=== PATIENT | male | born 1955 | race Caucasian/White ===

== ENCOUNTER 2017-08-25 02:43 | Inpatient (IN) | payer OTHER, MEDICARE ==
[~2017-08-25] VITALS: Ht 170.2 cm; Wt 90.7 kg
[~2017-08-25 02:43] MED LIST: PHENYTOIN SODI100 MG PO; PRIMIDONE250 M1 PO
--- NOTE | 2017-08-25 10:17 | ULTRASOUND REPORT ---
EXAMINATION: US TRIPLEX LOWER EXTREMITY, LEFT CLINICAL INFORMATION: History of left femur fracture, pain and swelling. Evaluate for deep vein thrombosis. Patient scheduled for surgery on 08/25/2017. COMPARISON: 08/30/2016 TECHNIQUE: Color-flow triplex imaging with spectral analysis and compression Doppler were performed on the lower extremity. FINDINGS: The left common femoral vein is compressible and exhibits a normal phasic waveform; this suggests that the iliac veins are widely patent above. Within the proximal thigh, the visualized profunda femoris vein is patent. The examined greater saphenous vein and saphenofemoral junction are normal. Superficial femoral vein is patent in the proximal, mid and distal thigh. Popliteal vein appears normal to the level of the trifurcation. On magaña scale and color Doppler images, the visualized calf veins are grossly patent. No evidence of Guerrero's cyst. IMPRESSION: No evidence of deep vein thrombosis in the left lower extremity.
--- NOTE | 2017-08-25 12:25 | Admission Core Measures ---
Acute Coronary Syndrome (CM) ACS Core Measures Acute Coronary Syndrome Diagnosis No Congestive Heart Failure (NEW) CHF Core Measures Congestive Heart Failure Diagnosis No Cerebrovascular Accident CVA Core Measures CVA/TIA Diagnosis No Venous Thromboembolism VTE Core Daryl (View Protocol) VTE Risk Factors Surgery No Mechanical VTE Prophylaxis d/t N/A MechProphylax Ordered No VTE Pharm Prophylaxis d/t NA PharmProphylax ordered Problem List As ranked by this Provider includes Assessment & Plan 1. Femur fracture, left HOME MEDS Home Med List Phenytoin Sodium Extended 100 MG CAPSULE 2 CAP PO BID SEIZURES (Reported) Primidone 250 MG TABLET 1 TAB PO BID SEIZURES (Reported)
--- NOTE | 2017-08-25 12:27 | Surgical Discharge Summary ---
Visit Information Visit Dates Admission Date: 08/25/17 Discharge Date: 08/28/17 History of Present Illness Chief Complaint: Refer to H&P Surgical History Pertinent Surgical History: L femur IM rodding 08/25/17 Psychosocial History What is Your Primary Language? Welsh Review of Systems: Refer to H&P Hospital Course Course Attending Physician: Amado MATTSON,Baldev Primary Care Physician: Cristian MATTSON,Óscar Watts Hospital Course: Patient presented to [facility] for an elective left femur IM rodding by Dr Prescott on 08/25/17. Patient tolerated the procedure and was brought to the PACU in stable condition. Post op he was seen and evaluated by PT. He had very little pain. He was started on Coumadin for DVT prophylaxis and his INR was check daily to titrate the dose. His dressing was changed daily and there were no signs of infection. His vitals remained stable, he was voiding without difficulty, tolerating a diet and was cleared for discharge. Allergies: Coded Allergies: No Known Allergies (08/22/17) Significant Procedures: Left femur IM rodding on 08/25/17 Disposition Summary Disposition Principal Diagnosis: Left femur fracture Additional Diagnosis: KALA s/p left retrograde femur IM rodding Discharge Disposition: SNF Discharge Instructions General Discharge Information Code Status: Full Code Patient's Diet: Regular Patient's Activity: Nonweight bearing of LLE No L knee flexion, knee immobilizer to be worn Follow-Up Instructions/Appts: 1-[address] Prescott Medications at Discharge Discharge Medications: Continue taking these medications: Phenytoin Sodium Extended (Phenytoin Sodium Extended) 100 MG CAPSULE 2 Capsule ORAL TWICE DAILY Qty = 360 Primidone (Primidone) 250 MG TABLET 1 Tablet ORAL TWICE DAILY Qty = 180 Start taking the following new medications: Polyethylene Glycol 3350 (Miralax) 17 GRAM POWD.PACK 1 Packet ORAL DAILY Qty = 7 No Refills Instructions: dissolve in water. STOP TAKING IF YOU DEVELOP LOOSE STOOL/DIARRHEA Docusate Sodium (Colace) 100 MG CAPSULE 1 Capsule ORAL THREE TIMES DAILY Qty = 21 No Refills Instructions: STOP TAKING IF YOU DEVELOP LOOSE STOOL/DIARRHEA Oxycodone HCl/Acetaminophen (Percocet 5-325 MG Tablet) 5 MG-325 MG TABLET 1 Tablet ORAL EVERY 4-6 HOURS as needed for postop pain Qty = 18 No Refills Warfarin Sodium (Coumadin) 2.5 MG TABLET 1 Tablet ORAL DAILY Qty = 30 No Refills Instructions: INR should be checked every other day to titrate dose. INR goal is between 2-3. Copies To: Cristian MATTSON,Óscar Watts
--- NOTE | 2017-08-25 12:29 | Patient Discharge Instructions ---
Discharge Instructions General Discharge Information You were seen/treated for: Left femur fracture You had these procedures: Left femur IM rodding on 08/25/17 Watch for these problems: Increased pain, fever > 101.3, redness or drainage from incision or inability to bear weight Other wound care: Keep incisions clean and dry May shower, no bathing or soaking Special Instructions: daily dry dressing change. No knee flextion Keep knee immobilizer in place Pt is being prescribed COumadin for post-op DVT prophylaxis. INR should be check everyother day to titrate daily dose. Goal INR is between 2-3. Please call Dr Hernandez office for further instructions if needed. Diet Continue normal diet: Yes Activity Activity Self Limited: Yes Activity Limited to: No weight bearing (of LLE / No L knee flexion) Acute Coronary Syndrome Inclusion Criteria At DC or during hospital stay patient has or had the following: ACS DIAGNOSIS No Discharge Core Measures Meds if any: Prescribed or Continued at Discharge Meds if any: NOT Prescribed or Continued at Discharge Congestive Heart Failure Inclusion Criteria At DC or during hospital stay patient has or had the following: CHF DIAGNOSIS No Discharge Core Measures Meds if any: Prescribed or Continued at Discharge Meds if any: NOT Prescribed or Continued at Discharge Cerebrovascular accident Inclusion Criteria At DC or during hospital stay patient has or had the following: CVA/TIA Diagnosis No Discharge Core Measures Meds if any: Prescribed or Continued at Discharge Meds if any: NOT Prescribed or Continued at Discharge Venous thromboembolism Inclusion Criteria VTE Diagnosis No VTE Type NONE VTE Confirmed by (Test) NONE Discharge Core Measures - Per Current guidelines, there needs to be overlap - treatment for the first 5 days of Warfarin therapy. - If discharged on Warfarin prior to 5 days of - overlap therapy, the patient will need to be - assessed for post discharge needs including - *Post discharge parental anticoagulation - *Warfarin and/or parental anticoagulation education - *Follow up date to check INR post discharge At least 5 days overlap therapy as Inpatient No Meds if any: Prescribed or Continued at Discharge Note: Overlap Therapy is Warfarin and Anticoagulant Meds if any: NOT Prescribed or Continued at Discharge
--- NOTE | 2017-08-25 15:59 | Operative Report ---
Operative/Inv Procedure Report Surgery Date: 08/25/17 Name of Procedure: Retrograde rodding left supracondylar/intercondylar femur fracture Pre-Operative Diagnosis: Displaced left supracondylar/intercondylar femur fracture Post-Operative Diagnosis: Same Estimated Blood Loss: 150cc Surgeon/Residential Youth Counselor: Amado MATTSON,Robby De Paz PA Anesthesia: general endotracheal tube Implants: Left supracondylar femoral rosa-size 13 x 20, 4 distal interlock and one proximal Drains: None Specimens: None Tourniquet: None used Complications: None Condition: Stable Operative Indication: This patient is a 62-year-old man who fell at home approximately 10 days ago injuring his left knee. He states he had a hyperflexion of the left knee. 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 He was seen in urgent care in our office 2 days after his injury and was found to have a displaced supracondylar/intercondylar femur fracture. Patient preferred just stay at home while getting cleared for surgery which was recommended. Recommendation was for retrograde rodding of the left femur fracture after reducing the fracture. Patient had significant swelling and fracture blisters that developed over the anteromedial aspect of the knee at the time of the initial evaluation and therefore surgery would have to be delayed. Patient was medically cleared and his swelling and fracture blisters have improved and therefore was ready to proceed with surgical management. Risks, benefits and expectations of the surgical procedure were discussed which included but were not limited to persistent knee pain, need for subsequent surgery, infection, DVT, injury of blood vessels or nerves, malunion, nonunion, anesthesia risks. Patient wishes to proceed with surgical management Operative/Procedure Note Note: Patient was brought to the operating room and transferred to the operating table. Once under appropriate anesthesia the left lower extremity was prepped and draped in standard fashion. Preoperative IV antibiotics were given prophylactically. The knee was slightly flexed and an incision was made over the anterior aspect of the knee at the level of the infrapatellar tendon. Patient's anatomy was distorted due to the chronic patellar dislocation. The incision was taken down sharply and entered the knee joint from the most medial aspect of the patellar tendon and entered the knee joint through the fat pad. Hemostasis was obtained. No tourniquet was used. The intracondylar notch was noted. There were severe degenerative changes of the distal femur and the chronically dislocated patella was palpated and there was significantly eburnated bone underneath the patella with loss of articular cartilage. There was a large hemarthrosis which was evacuated. The guidewire were using the Warren supracondylar nail was used to enter the distal femur. The left knee was manipulated so that to reduce patient's deformity which included a valgus deformity as well as a translated distal fragment and flexed distal fragment. After obtaining satisfactory alignment the guidepin was passed across the fracture into the proximal femur. I then used a starter reamer over the guide pin. The guide pin was then removed and then a beaded guidewire was passed into the proximal femur. Serial reamers up to a size 14 for anticipated insertion of a size 13 supracondylar nail was done while protecting the soft tissues with the soft tissue protector. The size 13 x 20 Eileen supracondylar nail was passed up across the fracture. I was satisfied position of the guidewire in both AP and lateral planes as well as the rosa. I then removed the guide wire and used the system guide for the cylinder locks. Due to the amount of comminution I elected to try to use all 4 distal interlocks as long as it did not go through the previous fracture blister site and also not to injure the chronically dislocated patella. In serial fashion I placed these interlocking screws in succession. I was satisfied with position of the distal interlocks as well as confirming that they were through the rosa. The more proximal interlock guide was then applied to the construct and I placed one proximal interlock screw in the more distal hole. But despite using the guide system, the drill did not pass through the interlock hole. Instead of injuring the femur in this area I elected to proceed with the more distal of the proximal interlocks. This was done to the guide system which did work. I was satisfied with the position and the length of the screws. Final fluoroscopic images were obtained of the construct. Also has had a reduction of the fracture and the stability of the fracture. Patient did have preoperative range of motion issues and the knee was taken to range of motion from full extension to about 95 of flexion with no crepitus and there was no evidence of instability of the fracture site. This was done after the guide rosa was removed from the rosa. There was no evidence of any prominence of the hardware. After final films were obtained copious irrigation the wound followed.. I then closed the joint with #1 Vicryl suture and interrupted fashion. Subcutaneous tissues closed with 2-0 Vicryl and skin was closed with vern. The interlock screw stab holes were closed with 2-0 Vicryl followed by vern. Appropriate dressings were applied and patient was awakened and taken to recovery room in good condition. No intraoperative complications. Blood loss approximately 150 mL Discharge Disposition: PACU
--- NOTE | 2017-08-25 16:11 | RADIOLOGY REPORT ---
EXAMINATION: XR FEMUR, LEFT CLINICAL INFORMATION: Open reduction and internal fixation left femur. COMPARISON: CT images of extremity, 08/18/2017. TECHNIQUE: Intraoperative fluoroscopic imaging of the left femur. Number of saved images: 35 Dose: 3.55 mGy (0.115 mGym2) Fluoroscopy time: 1 minute FINDINGS: Fluoroscopic imaging of the femur was utilized at the time of open reduction and internal fixation of the displaced supracondylar fracture. A retrograde intramedullary nail was inserted along with proximal and distal interlocking screws. Please refer to the operative report. Alignment between fracture fragments is markedly improved compared to the preoperative imaging evaluation. IMPRESSION: Intraoperative fluoroscopic imaging of the femur was performed at time of open reduction and internal fixation of the distal femoral supracondylar fracture.
[2017-08-25 17:26] VITALS: BP 164/84
[2017-08-25 21:00] VITALS: BP 120/60
--- NOTE | 2017-08-25 22:00 | PN- Orthopedic ---
Subjective Subjective: Post op check Awake, no complaints post op Denies any pain Tolerating diet, no nausea Has not ambulated Objective Vital Signs and I&Os Vital Signs Date Time Temp Pulse Resp B/P B/P Pulse O2 O2 Flow FiO2 Mean Ox Delivery Rate 08/25 2099 98.5 112 18 120/60 95 Room Air Physical Exam: vss, afebrile General; alert and oriented times three Chest: clear anteriorly bilaterally, RRR Abd: soft, good bs Ext; edema BLE L>R, normosensate Wds: dressing dry to LLE, knee immobilizer in place Assessment/Plan Assessment/Plan 62yo male s/p L femur IM rodding Pain management DVT ppx -coumadin 5 today - INR fu in am PT - nonweight bear to LLE, no L knee flexion Keep immobilizer in place Core Measures Venous Thromboembolism VTE Risk Factors Surgery No Mechanical VTE Prophylaxis d/t N/A MechProphylax Ordered No VTE Pharm Prophylaxis d/t NA PharmProphylax ordered
[2017-08-26 00:53] VITALS: BP 102/66
[2017-08-26 03:54] VITALS: BP 116/60
[2017-08-26 07:00] VITALS: BP 119/58
[2017-08-26 08:32] LABS: ABSOLUTE BASOPHIL COUNT 0 /CUMM (0.0-0.2); ABSOLUTE EOSINOPHIL COUNT 0.1 /CUMM (0.0-0.7); ABSOLUTE LYMPH COUNT 1.2 /CUMM (1.2-3.4); ABSOLUTE MONOCYTE COUNT 0.8 /CUMM (0.10-0.60); BASOPHIL % 0.1 % (0.0-2.0); EOSINOPHIL % 1.1 % (0-5); GRANULOCYTE % 74.1 % (42.2-75.2); HEMATOCRIT 26.1 % (42-52); MEAN CORPUSCULAR HGB 31.5 PG (27.0-31.0); MEAN CORPUSCULAR HGB CONC 33.6 G/DL (33.0-37.0); MEAN CORPUSCULAR VOLUME 93.8 FL (80.0-94.0); MEAN PLATELET VOLUME 8.1 FL (7.4-10.4); PLATELET COUNT 362 /CUMM (130-400); RBC DISTRIBUTION WIDTH 15.2 % (11.5-14.5); RED BLOOD CELL CT 2.78 /CUMM (4.70-6.10); WHITE BLOOD CELL COUNT 8.1 /CUMM (4.8-10.8)
[2017-08-26 08:45] LABS: PT 14.2 SEC (9.4-12.5)
--- NOTE | 2017-08-26 09:13 | PN- Orthopedic ---
See Addendum Subjective Subjective: Patient sitting in chair, resting comfortably. Patient states he has minimal pain well-controlled with medication. Is voiding spontaneously. Denies bowel movement. Has not been out of bed yet, knee immobilizer in place. Patient states he has some discomfort over his left Achilles where rosa from the knee immobilizer is digging into his soft tissue. Denies nausea, tolerating diet. Denies chest pain, shortness of breath, or headache. Objective Vital Signs and I&Os Vital Signs Date Time Temp Pulse Resp B/P B/P Pulse O2 O2 Flow FiO2 Mean Ox Delivery Rate 08/26 0354 99.3 111 20 116/60 95 Room Air 08/26 0053 98.7 112 20 102/66 96 Room Air 08/25 2100 98.5 112 18 120/60 95 Room Air 08/25 1726 97.4 97 18 164/84 97 Room Air Intake & Output 08/26 1600 08/26 0800 08/26 0000 08/25 1600 08/25 0800 08/25 0000 Intake Total 720 855 Output Total 675 1450 Balance 45 -595 Intake, IV 600 375 Intake, Oral 120 480 Output, Urine 675 1450 Patient 200 lb Weight Weight Bed scale Measurement Method Physical Exam: Generalno acute distress Respirationsclear Cardiacregular rate and rhythm Abdomensoft, nontender Extremitiesbilateral lower extremity pedal edema worse on left than right. Left leg wrapped in Rashawn bandage dressing clean and dry, knee immobilizer in place. Added additional padding over left Achilles tendon so knee immobilizer rosa is not digging into the skin. No calf tenderness skin is warm and dry Current Medications: Current Medications Sig/Sally Start time Last Medication Dose Route Stop Time Status Admin Cefazolin Sodium 2 GM Q8H 08/25 2200 DC 08/26 N/A 1 UNIT IV 08/26 0629 0520 Cefazolin Sodium 2,000 MG ONCE 08/25 0000 DC IV 08/25 2359 Dextrose/Lactated 1,000 ML Q13H 08/25 1730 DC 08/26 Ringer's IV 0518 Docusate Sodium 100 MG BID 08/26 0900 AC PO Docusate Sodium 100 MG DAILY NEEDED PRN 08/25 1730 DC PO Fentanyl Citrate 250 MCG .STK-MED ONE 08/25 1211 DC IM 08/25 1212 Hydromorphone HCl 2 MG .STK-MED ONE 08/25 1210 DC IM 08/25 1211 Midazolam HCl 2 MG .STK-MED ONE 08/25 121 DC IM 08/25 1212 Morphine Sulfate 2 MG Q3P PRN 08/25 173 AC IV Morphine Sulfate 4 MG Q3P PRN 08/25 173 AC IV Ondansetron HCl 4 MG Q6P PRN 08/25 1730 AC IV Oxycodone/ 1 TAB Q4P PRN 08/25 173 AC Acetaminophen PO Oxycodone/ 2 TAB Q4P PRN 08/25 173 AC Acetaminophen PO Phenytoin 200 MG BID 08/25 2099 AC 08/26 PO 0806 Polyethylene Glycol 17 GM DAILY NEEDED PRN 08/25 173 AC PO Primidone 250 MG BID 08/25 2099 AC 08/26 PO 08 Senna/Docusate Sodium 2 TAB AT BEDTIME NEED.. 08/25 173 AC PO Warfarin Sodium 5 MG COUMADIN 1700 ONE 08/25 1700 DC 08/25 PO 08/25 1701 1803 Results Last 48 Hours of Labs: Laboratory Tests 08/26 0650 Chemistry Sodium (137 - 145 mmol/L) 139 Potassium (3.5 - 5.1 mmol/L) 3.9 Chloride (98 - 107 mmol/L) 103 Carbon Dioxide (22 - 30 mmol/L) 29 Anion Gap (5 - 16) 8 BUN (9 - 20 mg/dL) 9 Creatinine (0.7 - 1.2 mg/dL) 0.5 L Estimated GFR (>60 ml/min) > 60 BUN/Creatinine Ratio (7 - 25 %) 18.0 Coagulation PT (9.4 - 12.5 SEC) 14.2 H INR (0.90 - 1.17) 1.30 H Hematology CBC w Diff NO MAN DIFF REQ WBC (4.8 - 10.8 /CUMM) 8.1 RBC (4.70 - 6.10 /CUMM) 2.78 L Hgb (14.0 - 18.0 G/DL) 8.8 L Hct (42 - 52 %) 26.1 L MCV (80.0 - 94.0 FL) 93.8 MCH (27.0 - 31.0 PG) 31.5 H MCHC (33.0 - 37.0 G/DL) 33.6 RDW (11.5 - 14.5 %) 15.2 H Plt Count (130 - 400 /CUMM) 362 MPV (7.4 - 10.4 FL) 8.1 Gran % (42.2 - 75.2 %) 74.1 Lymphocytes % (20.5 - 51.1 %) 14.6 L Monocytes % (1.7 - 9.3 %) 10.1 H Eosinophils % (0 - 5 %) 1.1 Basophils % (0.0 - 2.0 %) 0.1 Absolute Granulocytes (1.4 - 6.5 /CUMM) 6.0 Absolute Lymphocytes (1.2 - 3.4 /CUMM) 1.2 Absolute Monocytes (0.10 - 0.60 /CUMM) 0.8 H Absolute Eosinophils (0.0 - 0.7 /CUMM) 0.1 Absolute Basophils (0.0 - 0.2 /CUMM) 0 Assessment/Plan Assessment/Plan 62yo male with mild MR s/p L femur retrograde IM rodding POD1. stable Pain management DVT ppx -coumadin 5 today - INR is 1.3. goal is 2-3 We will continue to trend H&H to watch for possible acute blood loss anemia PT - nonweight bear to LLE, no L knee flexion IS Add bowel regimen Keep immobilizer in place. Make sure extra padding over Achilles tendon. Regular diet, will DC IV fluids Regular home meds Dressing change postop day 2 DC planningfamily would prefer Leodan Natarajan Core Measures Venous Thromboembolism VTE Risk Factors Surgery No Mechanical VTE Prophylaxis d/t N/A MechProphylax Ordered No VTE Pharm Prophylaxis d/t NA PharmProphylax ordered
[2017-08-26 11:00] VITALS: BP 104/64
[2017-08-26 14:25] VITALS: BP 117/62
[2017-08-26 22:46] VITALS: BP 120/72
[2017-08-27 07:11] VITALS: BP 126/68
--- NOTE | 2017-08-27 08:20 | PN- Orthopedic ---
See Addendum Subjective Subjective: Patient comfortable, mild pain with motion, otherwise pain is well controlled. Knee immobilizer fitting better. No acute events overnight. Does not feel lightheaded or dizzy. Objective Vital Signs and I&Os Vital Signs Date Time Temp Pulse Resp B/P B/P Pulse O2 O2 Flow FiO2 Mean Ox Delivery Rate 08/27 710 99.0 104 20 126/68 95 08/26 2246 98.9 100 20 120/72 95 08/26 1425 99.1 115 20 117/62 97 Room Air 08/26 1150 Room Air 08/26 1100 98.2 104 16 104/64 96 Room Air 08/26 1028 100 Intake & Output 08/27 0808/27 0000 08/26 1600 08/26 0808/26 0000 Intake Total 240 575 720 855 Output Total 650 400 026 335 1254 Balance -650 -160 75 45 -595 Intake, IV 75 600 375 Intake, Oral 240 500 120 480 Number 0 Bowel Movements Output, Urine 650 400 902 173 3385 Patient 200 lb Weight Weight Bed scale Measurement Method Physical Exam: Well-developed well-nourished no apparent distress. HEENT: Atraumatic, extraocular motion intact Neck: Supple, no lymphadenopathy Respiratory: No respiratory distress Extremities: No edema LEFT lower extremity dressing in place, Mild bloody drainage from anterior knee incision. Mild to moderate swelling. No signs of infection. Mild joint effusion dressing changed, dry sterile dressings applied Compression wrap in place. ALPS in place Neurovascularly intact distally Bilateral calves are supple, nontender. Neuro: Alert and oriented x3 Psych: Mood affect normal, normal memory normal judgment. Skin: Warm and dry, no rash on exposed skin Results Last 48 Hours of Labs: Laboratory Tests 08/27 08/26 0638 0650 Chemistry Sodium (137 - 145 mmol/L) 139 Potassium (3.5 - 5.1 mmol/L) 3.9 Chloride (98 - 107 mmol/L) 103 Carbon Dioxide (22 - 30 mmol/L) 29 Anion Gap (5 - 16) 8 BUN (9 - 20 mg/dL) 9 Creatinine (0.7 - 1.2 mg/dL) 0.5 L Estimated GFR (>60 ml/min) > 60 BUN/Creatinine Ratio (7 - 25 %) 18.0 Coagulation PT (9.4 - 12.5 SEC) Pending 14.2 H INR (0.90 - 1.17) Pending 1.30 H Hematology CBC w Diff Pending NO MAN DIFF REQ WBC (4.8 - 10.8 /CUMM) Pending 8.1 RBC (4.70 - 6.10 /CUMM) Pending 2.78 L Hgb (14.0 - 18.0 G/DL) Pending 8.8 L Hct (42 - 52 %) Pending 26.1 L MCV (80.0 - 94.0 FL) Pending 93.8 MCH (27.0 - 31.0 PG) Pending 31.5 H MCHC (33.0 - 37.0 G/DL) Pending 33.6 RDW (11.5 - 14.5 %) Pending 15.2 H Plt Count (130 - 400 /CUMM) Pending 362 MPV (7.4 - 10.4 FL) Pending 8.1 Gran % (42.2 - 75.2 %) 74.1 Lymphocytes % (20.5 - 51.1 %) 14.6 L Monocytes % (1.7 - 9.3 %) 10.1 H Eosinophils % (0 - 5 %) 1.1 Basophils % (0.0 - 2.0 %) 0.1 Absolute Granulocytes (1.4 - 6.5 /CUMM) 6.0 Absolute Lymphocytes (1.2 - 3.4 /CUMM) 1.2 Absolute Monocytes (0.10 - 0.60 /CUMM) 0.8 H Absolute Eosinophils (0.0 - 0.7 /CUMM) 0.1 Absolute Basophils (0.0 - 0.2 /CUMM) 0 Assessment/Plan Assessment/Plan 62yo male with mild MR s/p L femur retrograde IM rodding POD2. Pain management DVT ppx -coumadin, INR pending today We will continue to trend H&H to watch for possible acute blood loss anemia, mild tachycardia overnight PT - nonweight bear to LLE, no L knee flexion IS Keep immobilizer in place. Make sure extra padding over Achilles tendon. Regular diet, Regular home meds Dressing change daily, done today, dsd applied DC planningfamily would prefer Leodan Natarajan, later today vs tomorrow Core Measures Venous Thromboembolism VTE Risk Factors Surgery No Mechanical VTE Prophylaxis d/t N/A MechProphylax Ordered No VTE Pharm Prophylaxis d/t NA PharmProphylax ordered
[2017-08-27 08:24] LABS: ABSOLUTE BASOPHIL COUNT 0 /CUMM (0.0-0.2); ABSOLUTE EOSINOPHIL COUNT 0.2 /CUMM (0.0-0.7); ABSOLUTE GRANULOCYTE CT 6.1 /CUMM (1.4-6.5); ABSOLUTE LYMPH COUNT 1.4 /CUMM (1.2-3.4); BASOPHIL % 0.1 % (0.0-2.0); EOSINOPHIL % 2.8 % (0-5); GRANULOCYTE % 69.8 % (42.2-75.2); HEMATOCRIT 26.4 % (42-52); MEAN CORPUSCULAR HGB CONC 33.1 G/DL (33.0-37.0); MEAN CORPUSCULAR VOLUME 93.7 FL (80.0-94.0); MEAN PLATELET VOLUME 8.2 FL (7.4-10.4); PLATELET COUNT 341 /CUMM (130-400); RBC DISTRIBUTION WIDTH 15.4 % (11.5-14.5); RED BLOOD CELL CT 2.82 /CUMM (4.70-6.10); WHITE BLOOD CELL COUNT 8.7 /CUMM (4.8-10.8)
[2017-08-27 09:34] LABS: PT 20.5 SEC (9.4-12.5)
[2017-08-27 14:48] VITALS: BP 120/60
[2017-08-27 21:17] VITALS: BP 118/62
[2017-08-28 06:15] VITALS: BP 112/64
--- NOTE | 2017-08-28 09:21 | PN- Orthopedic ---
Subjective Subjective: pt sitting in chair, no complaints of pain. worked with PT this morning. Dneis nausea, tolerating diet voiding, last BM 2 days ago. deneis paresthesias Denies CP/SOB/SOLARES Objective Vital Signs and I&Os Vital Signs Date Time Temp Pulse Resp B/P B/P Pulse O2 O2 Flow FiO2 Mean Ox Delivery Rate 08/28 0515 98.1 91 20 112/64 94 Room Air 08/27 2117 98.8 111 20 118/62 94 08/27 1448 99.5 104 20 120/60 96 Room Air Intake & Output 08/28 1600 08/28 0800 08/28 0000 08/27 1600 08/27 0808/27 0000 Intake Total 375 376 9703 240 Output Total 400 200 725 650 400 Balance -40 160 285 -650 -160 Intake, IV 10 Intake, Oral 910 387 1854 240 Output, Urine 400 200 725 650 400 Physical Exam: gen- NAD resp-clear cardiac-RRR abd- soft, NT ext- left leg in knee immobilizer, dressing with minimal drainage. dressing changed. wounds with no signs of infection. pedal edema bilaterally. no calf tenderness. distal sensation intact, distal motor function is decreased on the left (this is is baseline) Current Medications: Current Medications Sig/Sally Start time Last Medication Dose Route Stop Time Status Admin Docusate Sodium 100 MG BID 08/26 899 AC 08/28 PO 0846 Ferrous Sulfate 325 MG BID 08/27 2099 AC 08/28 PO 0846 Morphine Sulfate 2 MG Q3P PRN 08/25 1730 AC IV Morphine Sulfate 4 MG Q3P PRN 08/25 1730 AC IV Nystatin 1 RE BID 08/27 09 AC 08/28 TOP 0846 Ondansetron HCl 4 MG Q6P PRN 08/25 1730 AC IV Oxycodone/ 1 TAB Q4P PRN 08/25 1730 AC Acetaminophen PO Oxycodone/ 2 TAB Q4P PRN 08/25 1730 AC Acetaminophen PO Patient Medication 1 ED ONE ONE 08/27 1230 DC Teaching ED 08/27 1231 Phenytoin 200 MG BID 08/25 2099 AC 08/28 PO 0846 Polyethylene Glycol 17 GM DAILY NEEDED PRN 08/25 1730 AC PO Primidone 250 MG BID 08/25 2099 AC 08/28 PO 0846 Senna/Docusate Sodium 2 TAB AT BEDTIME NEED.. 08/25 1730 AC PO Warfarin Sodium 2.5 MG COUMADIN 1700 ONE 08/27 1700 DC 08/27 PO 08/27 1701 1707 Results Last 48 Hours of Labs: Laboratory Tests 08/27 0638 Coagulation PT (9.4 - 12.5 SEC) 20.5 H INR (0.90 - 1.17) 1.87 H Hematology CBC w Diff NO MAN DIFF REQ WBC (4.8 - 10.8 /CUMM) 8.7 RBC (4.70 - 6.10 /CUMM) 2.82 L Hgb (14.0 - 18.0 G/DL) 8.7 L Hct (42 - 52 %) 26.4 L MCV (80.0 - 94.0 FL) 93.7 MCH (27.0 - 31.0 PG) 31.0 MCHC (33.0 - 37.0 G/DL) 33.1 RDW (11.5 - 14.5 %) 15.4 H Plt Count (130 - 400 /CUMM) 341 MPV (7.4 - 10.4 FL) 8.2 Gran % (42.2 - 75.2 %) 69.8 Lymphocytes % (20.5 - 51.1 %) 16.3 L Monocytes % (1.7 - 9.3 %) 11.0 H Eosinophils % (0 - 5 %) 2.8 Basophils % (0.0 - 2.0 %) 0.1 Absolute Granulocytes (1.4 - 6.5 /CUMM) 6.1 Absolute Lymphocytes (1.2 - 3.4 /CUMM) 1.4 Absolute Monocytes (0.10 - 0.60 /CUMM) 1.0 H Absolute Eosinophils (0.0 - 0.7 /CUMM) 0.2 Absolute Basophils (0.0 - 0.2 /CUMM) 0 Assessment/Plan Assessment/Plan 62yo male with mild MR s/p L femur retrograde IM rodding POD3. Stable for dc to rehab today Pain management DVT ppx -coumadin, INR was 1.87 yesterday. INR pending today We will continue to trend H&H to watch for possible acute blood loss anemia, mild tachycardia overnight PT - nonweight bear to LLE, no L knee flexion IS bowel regimen Keep immobilizer in place. Make sure extra padding over Achilles tendon. Regular diet Regular home meds Dry dressing change daily, done today, dsd applied DC planningfamily would prefer Leodan Natarajan. DC today FU with Dr Morales in 10 days, will need repeat x-rasy in 3 weeks Core Measures Venous Thromboembolism VTE Risk Factors Surgery No Mechanical VTE Prophylaxis d/t N/A MechProphylax Ordered No VTE Pharm Prophylaxis d/t NA PharmProphylax ordered
[2017-08-28] MEDS ORDERED: MIRALAX17 G1 PO (09:44)
[2017-08-28] MEDS ORDERED: COUMADIN2.5 M1 PO (09:44)
[2017-08-28] MEDS ORDERED: PERCOCET 5-3251 EACH PO (09:44)
[2017-08-28] MEDS ORDERED: COLACE100 M1 PO (09:44)
[2017-08-28 10:03] LABS: PT 20.5 SEC (9.4-12.5)
[2017-08-28 11:19] VITALS: BP 112/64
== END 2017-08-28 12:15 | DRG 482 ==
LOC: SDA 02:43 → XRY 09:30 → EDSTATUS 09:30 → ENRESERV 16:26 → ENTRNSPT 16:58 → EDTRNSPTSTS 17:08 → EDTRNSPT 17:08 → 2NB 17:19 → CMPTRNSPT 17:24 → 2NB 08-28 12:15
PROVIDERS: Physician Assistant Surgical
PROC: 0QSC06Z Reposition Left Lower Femur with Intramedullary Internal Fixation Device, Open Approach (ICD-10-PCS; principal; 2017-08-25)
PROC: 0QS706Z Reposition Left Upper Femur with Intramedullary Internal Fixation Device, Open Approach (ICD-10-PCS; principal; 2017-08-25)
DX: S72.462A Displaced supracondylar fracture with intracondylar extension of lower end of left femur, initial encounter for closed fracture (principal); K21.9 Gastro-esophageal reflux disease without esophagitis
CPT/HCPCS: 2NBSP; 36415; 36592; 73552; 82436; 97110-GO; 97116-GO; 97162-GP; 97530-GO; J0690; J3490